=== PATIENT | female | born 1965 | race Caucasian/White ===

== ENCOUNTER → 2018-07-03 17:19 | Outpatient (CLI) | payer OTHER, SELFPAY ==
--- NOTE | 2018-07-03 17:21 | MM_ITS ---
MM Dig screening mamm BI w/CAD CAD Screening COMPARISON: Digital mammograms with CAD 06/20/2017 and 06/17/2016 INDICATION: There is a history of breast cancer patient maternal grandmother and paternal aunts TECHNIQUE: Standard CC and MLO images were obtained. R2 CAD reviewed. FINDINGS: Prominent diffuse heterogenic fibroglandular densities are seen in both breast and the findings are bilateral and symmetrical. There is no new or suspicious lesion in either breast and no suspicious microcalcifications. There is a tiny stable benign-appearing nodular density axillary tail right breast. IMPRESSION: Diffusely dense parenchymal pattern with no suspicious lesion seen BI-RADS Category: 2 Benign Finding(s) RECOMMENDED FOLLOW-UP: 1YR - 1 YEAR FOLLOW-UP (A letter has been sent to the patient regarding results of the study.)
== END ==
PROVIDERS: Family Provider Family Medicine; PCP Family Medicine; Visit Provider Obstetrics & Gynecology
DX: Z12.31 Encounter for screening mammogram for malignant neoplasm of breast (principal)
CPT/HCPCS: 77067

== ENCOUNTER → 2019-07-17 14:58 | Outpatient (CLI) | payer OTHER, SELFPAY ==
--- NOTE | 2019-07-17 15:00 | MM_ITS ---
PROCEDURE: MM DIG SCREENING MAMM BI W/CAD CLINICAL INDICATION: SCREENING There is a history of breast cancer patient's paternal grandmother and paternal aunts. COMPARISON: [facility] DIG MAMM-SCREEN EDUARDA from 06/17/2016 [facility] DIG MAMM-SCREEN EDUARDA W/CAD from 06/20/2017 [facility] MM Dig screening mamm BI w/CAD from 07/03/2018 TECHNIQUE: Standard CC and MLO images were obtained. R2 CAD reviewed. FINDINGS: Prominent diffuse heterogenic fibroglandular densities are seen throughout both breast and the findings are basically stable and unchanged from the previous exam. There is no new or suspicious lesion in either breast and no suspicious microcalcifications. Again noted is a stable tiny nodular density near the axillary tail right breast. There is no suspicious lesion and no suspicious microcalcifications. IMPRESSION: Diffusely dense parenchymal pattern with no suspicious lesions seen BI-RAD Category: 2 Benign Finding(s) FOLLOW-UP: 1YR 1 Year Follow-up (A letter has been sent to the patient regarding results of the study.) Dictated by: Dr. Johnathan Keys MD 07/18/2019 16:[address] Johnathan Keys MD in [place] 07/18/2019 16:20
--- NOTE | 2019-07-17 15:00 | XR_ITS ---
PROCEDURE: XR DEXA AXIAL SKELETON CLINICAL HISTORY: SCREENING COMPARISON: No exams were available for comparison FINDINGS: L1-L4 density is 1.340 grams/centimeters sq with a T-score of 1.3 which is normal. The left femoral neck density is 0.970 grams/centimeters sq with a T-score of -0.5 IMPRESSION: Normal bone density with low fracture risk. Suggest follow-up exam July 2021 Dictated by: Dakotah Mckenzie MD 07/17/2019 15:59 Electronically signed by Dakotah Mckenzie MD in [place] 07/17/2019 15:59
== END ==
PROVIDERS: PCP Family Medicine; Visit Provider Obstetrics & Gynecology
DX: Z78.0 Asymptomatic menopausal state (principal); Z12.31 Encounter for screening mammogram for malignant neoplasm of breast; Z13.820 Encounter for screening for osteoporosis
CPT/HCPCS: 77067; 77080

== ENCOUNTER → 2020-07-20 16:53 | Outpatient (CLI) | payer OTHER, SELFPAY ==
--- NOTE | 2020-07-20 16:54 | MM_ITS ---
PROCEDURE: MM DIG SCREENING MAMM BI W/CAD Digital Breast Tomosynthesis Included CLINICAL INDICATION: Routine Screening Mammogram There is a history of breast cancer in the patient's maternal grandmother and paternal aunts. The patient currently is on Premarin. COMPARISON: MG DMSB DIG MAMM-SCREEN EDUARDA W/CAD from 06/20/2017 MG [facility] MM Dig screening mamm BI w/CAD from 07/03/2018 MG MM DIG SCREENING MAMM BI W/CAD from 07/17/2019 TECHNIQUE: Standard CC and MLO images and 3D Tomosynthesis was obtained. R2 CAD reviewed. FINDINGS: Diffuse somewhat heterogenic fibroglandular densities are seen throughout both breasts. The findings are bilateral and symmetrical. There is a stable asymmetric density near the axillary tail right breast. There is no suspicious lesion and no suspicious microcalcifications. IMPRESSION: Stable diffusely dense parenchymal pattern with no suspicious lesions seen BI-RAD Category: 1 Negative FOLLOW-UP: 1YR 1 Year Follow-up (A letter has been sent to the patient regarding results of the study.) Dictated by: Dr. Johnathan Keys MD 07/22/2020 17:58 Dr. Johnathan Keys MD in [place] 07/22/2020 17:58
== END ==
PROVIDERS: PCP Family Medicine; Visit Provider Obstetrics & Gynecology
DX: Z12.31 Encounter for screening mammogram for malignant neoplasm of breast (principal)
CPT/HCPCS: 77063; 77067

== ENCOUNTER → 2020-11-10 14:50 | Outpatient (POV) | payer OTHER, SELFPAY | PROVIDERS: Visit Provider Dermatology | DX: Z00.00 Encounter for general adult medical examination without abnormal findings (principal) ==

== ENCOUNTER → 2021-05-05 16:24 | Outpatient (CLI) | payer OTHER, SELFPAY | PROVIDERS: Visit Provider Internal Medicine Gastroenterology | DX: Z01.812 Encounter for preprocedural laboratory examination (principal); Z20.822 Contact with and (suspected) exposure to COVID-19; Z12.11 Encounter for screening for malignant neoplasm of colon | CPT/HCPCS: U0003 ==

== ENCOUNTER 2021-05-07 07:26 | Day surgery (SDC) | payer OTHER, SELFPAY ==
[2021-04-29 14:46] VITALS: BMI 23.2
[2021-05-07] VITALS (7 sets, daily range): BP systolic 98–134; BP diastolic 53–89; PULSE 72–90; RESP 16–18; TEMP 36.3–37.2; O2SAT 95–100
--- NOTE | 2021-05-07 07:46 | HMH.ANESCL ---
[facility] [place] Anesthesia Checklist - Patient Identification Patient Identification: Arm Band - Structural Data Admitted From: Home Planned Operative Procedure/s: Colonoscopy Consent for Planned Operative Procedure(s) Verified: Yes - NPO Status Verified Time NPO: 00:00 - Airway Assessment C-Spine Mobility Assessed: Yes TMJ Mobility Assessed: Yes Dentition: Good Dentition - Neurological Assessment Level of Consciousness: Awake Hx Seizures: No Numbness or tingling in extremities: No - Anesthesia Plan Anesthesia Risk discussed: Yes Anesthesia Plan: Verified ASA Class: II Anesthesia Type: MAC [facility] [place] History I have reviewed the patient's past medical history: Yes Medical History: Reports:: Kidney Stones Denies:: Cancer, Diabetes Mellitus Type 1, Diabetes Mellitus Type 2, MRSA *Have you ever received a pneumonia vaccine?: No *Have you received a flu vaccine this season?: Yes Other Medical History: Reports: Hypothyroidism Anesthesia experience/problems:: None Other Surgeries: Yes: Cholecystectomy, , Hysterectomy-Total, Other Amputation: No Fractures: No - *Social History Last grade of school completed: Advanced degree Smoking Status: Never smoker Alcohol Intake: never Alcohol Intake Frequency:: holidays/special occasions only Substance Use Type: denies use *Occupational Status:: employed *Travel in the last 8 weeks: None Family Hx:: Cancer, Stroke, Coronary Artery Disease
--- NOTE | 2021-05-07 08:39 | P.PCN_ITS ---
[facility] Procedure Note Procedure Note:: Colonoscopy Procedure Report: Colonoscopy Endoscopist: Tony Ramos II, MD Referring physician: SULEMAN Guardado Date of Procedure: May 07, 2021 Equipment: Olympus 190 variable stiffness pediatric colonoscope Sedation: MAC sedation Indication: Mrs. Hilliard is a 55-year-old female who is here for an initial screening colonoscopy. She reports no abdominal pain, weight loss, change in her bowel habits or family history of colon cancer. She does get some occasional hemorrhoidal prolapse and rarely some hemorrhoidal bleeding. Procedure: Prior to the procedure, a history and physical exam was performed, and patient's medications and allergies were reviewed. The risks, benefits and alternatives of the sedation and procedure were discussed with the patient. All questions were answered and informed consent was obtained. The patient was brought to the procedure room. Patient identification and proposed procedure were verified by the physician and the nurse. The patient was placed in a left lateral decubitus position and the scope was passed under direct vision. Throughout the pr ocedure, the patient's blood pressure, pulse, and oxygen saturations were monitored continuously. The colonoscopy was accomplished without difficulty. The patient tolerated the procedure well. Findings: On digital rectal examination there was normal rectal tone. There were no external hemorrhoids. The colonoscope was introduced through the anal canal to the rectum and advanced to the cecum. The ileocecal valve and appendiceal orifice were identified. The scope was advanced a short distance into the ileum which appeared grossly normal. The scope was then withdrawn into the colon. The cecum, ascending, transverse, descending, sigmoid and rectum were grossly normal. There were no mucosal abnormalities identified. Upon retroflexion within the rectum there were grade 1 internal hemorrhoids.The preparation was excellent throughout with Linwood Preparation Score of 9. The cecal time was 10 minutes. Impression: 1. Normal colonoscopy with intubation of the terminal ileum 2. Grade 1 internal hemorrhoids Plan: The patient will not require screening/surveillance colonoscopy again for 10 years by ACS guidelines. I would encourage bulking fiber supplementation on a long-term daily maintenance basis.
== END 2021-05-07 09:45 | disposition home or self-care (01) ==
LOC: OUTP 07:28
PROVIDERS: PCP Family Medicine; Visit Provider Internal Medicine Gastroenterology
PROC: 0DJD8ZZ Inspection of Lower Intestinal Tract, Via Natural or Artificial Opening Endoscopic (ICD-10-PCS; CPT 45378; principal; 2021-05-07 08:30)
DX: Z12.11 Encounter for screening for malignant neoplasm of colon (principal); K64.0 First degree hemorrhoids; Z87.442 Personal history of urinary calculi; E03.9 Hypothyroidism, unspecified; Z80.9 Family history of malignant neoplasm, unspecified; Z82.3 Family history of stroke; Z82.49 Family history of ischemic heart disease and other diseases of the circulatory system; Z79.890 Hormone replacement therapy; Z79.899 Other long term (current) drug therapy
CPT/HCPCS: 45378

== ENCOUNTER → 2021-07-27 16:47 | Outpatient (CLI) | payer OTHER, SELFPAY ==
--- NOTE | 2021-07-27 16:47 | MM_ITS ---
PROCEDURE INFORMATION: Exam: MG Bilateral Screening 3D Mammography Exam date and time: 07/27/2021 4:47 PM Age: 55 years old Clinical indication: Encounter for screening mammogram for malignant neoplasm of breast TECHNIQUE: Imaging protocol: Bilateral screening tomosynthesis and 2D mammography including computer-aided detection (CAD) when performed. COMPARISON: 1. MG MM DIG SCREENING MAMM BI W/CAD 07/20/2020 4:58 PM 2. MG MM DIG SCREENING MAMM BI W/CAD 07/17/2019 3:49 PM FINDINGS: MAMMOGRAPHY: Breast composition: The breast tissue is heterogeneously dense, which may obscure small masses. Mass: None. Architectural distortion: None. Calcifications: No suspicious calcifications. Asymmetric density: None. Skin thickening: None. Axillary adenopathy: None. IMPRESSION: No mammographic evidence of malignancy. Annual screening is recommended unless otherwise clinically indicated. ASSESSMENT: BI-RADS Category 1: Negative
== END ==
PROVIDERS: PCP Family Medicine; Visit Provider Obstetrics & Gynecology
DX: Z12.31 Encounter for screening mammogram for malignant neoplasm of breast (principal)
CPT/HCPCS: 77063; 77067

== ENCOUNTER → 2022-04-12 11:14 | Outpatient (POV) | payer OTHER, SELFPAY | PROVIDERS: Visit Provider Dermatology | DX: Z00.00 Encounter for general adult medical examination without abnormal findings (principal) ==

== ENCOUNTER → 2022-05-12 08:24 | Outpatient (CLI) | payer OTHER, SELFPAY ==
--- NOTE | 2022-05-12 08:29 | CT_ITS ---
FINAL REPORT CLINICAL HISTORY: LLQ ABDOMINAL PAIN. ABDOMINAL SWELLING FINDINGS: CT OF THE ABDOMEN AND PELVIS WITH CONTRAST Axial CT images of the abdomen and pelvis were obtained after the administration of oral and iv contrast. Coronal reformatted images were also obtained and reviewed.This study was performed with techniques to keep radiation doses as low as reasonably achievable (ALARA). Individualized dose reduction techniques using automated exposure control or adjustment of mA and/or kV according to the patient's size were employed. Abdomen: The lung bases are clear. The heart is normal in size. The liver has an unremarkable appearance, without evidence of mass or biliary ductal dilatation. There are postoperative changes from cholecystectomy. There is mild biliary ductal dilatation which is likely a post cholecystectomy change. The spleen is unremarkable. No adrenal mass is present. The pancreas has an unremarkable appearance. The kidneys are normal, without evidence of mass or hydronephrosis. The aorta is normal in caliber. There is no free fluid or adenopathy. No mass or abnormal fluid collection is seen. There is a small umbilical hernia containing fat. Pelvis: The appendix is not visualized. The urinary bladder is unremarkable. No inflammatory process is seen. There is no evidence of mass or adenopathy. There is no evidence of bowel obstruction. There are postoperative changes from hysterectomy. IMPRESSION: No evidence of acute intra-abdominal process. Reviewed, Interpreted and Dictated by Michael Holman III, MD Transcribed by Tiffanie Valdez Authenticated and [facility]
== END ==
PROVIDERS: PCP Nurse Practitioner Family; Visit Provider Nurse Practitioner Family
DX: R10.32 Left lower quadrant pain (principal); R19.04 Left lower quadrant abdominal swelling, mass and lump
CPT/HCPCS: 74177; Q9967

== ENCOUNTER → 2022-06-17 08:27 | Outpatient (CLI) | payer OTHER, SELFPAY ==
[2022-06-17 08:32] LABS: Microscopic, Urine URINE MICROSCOPIC (MICROSCOPIC)
[2022-06-17 08:54] LABS: Basophils # 0.1 K/mm3 (0-0.2); Eosinophils # 0.2 K/mm3 (0.0-0.4); Eosinophils % 2.6 % (0.1-12.0); Hematocrit 42.1 % (37.0-47.0); Hemoglobin 13.6 g/dL (12.2-16.2); Lymphocytes # 1.6 K/mm3 (0.7-4.5); Lymphocytes % 25.2 % (10-50); Mean Corpuscular HGB Conc 32.2 g/dL (31.8-35.4); Mean Corpuscular Hemoglobin 29.3 pg (27.0-31.2); Mean Corpuscular Volume 90.8 fl (81-99); Mean Platelet Volume 8.7 fl (7.4-10.4); Monocytes # 0.5 K/mm3 (0.1-1.0); Monocytes % 6.9 % (1.7-9.3); Neutrophils # 4.1 K/mm3 (1.8-7.8); Neutrophils % 63.4 % (37.0-80.0); Platelet Count 328 K/mm3 (142-424); Red Blood Count 4.64 M/mm3 (4.20-5.40); Red Cell Distribution Width 13.2 % (11.5-17.5); White Blood Count 6.5 K/mm3 (4.8-10.8)
[2022-06-17 08:57] LABS: Appearance,Urine CLEAR (Clear); Bilirubin,Urine Negative (Negative); Blood, Urine 1+ (Negative); Color,Urine DK YELLOW (Yellow); Glucose,Urine (UA) Negative (Negative); Ketones,Urine Negative (Negative); Leukocyte Esterase,Urine Negative (Negative); Nitrate,Urine Negative (Negative); Protein,Urine Negative (Negative); Specific Gravity, Urine >= 1.030 (1.005-1.030); Urobilinogen,Urine 0.2 EU/dl (0.2)
[2022-06-17 09:12] LABS: RBC,Urine Occasional #/hpf (0-3); Squamous Epithelial Cell,Urine Occasional #/hpf (0-5); WBC,Urine Occasional #/hpf (0-3)
[2022-06-17 09:17] LABS: Chloride 101 mmol/L (98-107); Sodium 137 mmol/L (136-145)
[2022-06-17 09:20] LABS: Blood Urea Nitrogen 11 mg/dl (7-17); Calcium 8.7 mg/dl (8.4-10.2); Carbon Dioxide 28 mmol/L (22.0-30.0); Estimated Glomerular Filt Rate 87 ml/min (>60); GFR (African American) 105 ML/MIN (>60); Glucose 86 mg/dl (74-100)
== END ==
PROVIDERS: PCP Nurse Practitioner Family; Visit Provider Surgery
DX: K42.9 Umbilical hernia without obstruction or gangrene (principal)
CPT/HCPCS: 36415; 80048; 81001; 85025

== ENCOUNTER 2022-06-30 08:30 | Day surgery (SDC) | payer OTHER, SELFPAY ==
[2022-06-30] VITALS (22 sets, daily range): BP systolic 107–138; BP diastolic 62–96; PULSE 69–95; RESP 12–18; TEMP 36.1–43; O2SAT 93–97; BMI 25.7
--- NOTE | 2022-06-30 09:29 | EXP.ANES.CKL ---
PFSH PFSH Medical History (Updated 06/30/22 @ 09:10 by Lauren Mejia RN) Allergies Anxiety Cholecystectomy planned Endometriosis Gallbladder disease Hypothyroid Sinus headache Urinary tract infection Surgical History (Updated 06/30/22 @ 09:10 by Lauren Mejia, RN) H/O total hysterectomy History of appendectomy Hx of section Family History Other Cancer Heart disease Social History (Updated 06/30/22 @ 08:55 by Lauren Mejia RN) Smoking Status: Never smoker alcohol intake: never substance use type: denies use current occupational status: employed Travel in the last 8 weeks: None caffeine: Yes [facility] Anesthesia Checklist Patient Identification Patient Identification: Arm Band Structural Data Admitted From: Home Planned Operative Procedure/s: Laparoscopic Umbilical Hernia Repair Consent for Planned Operative Procedure(s) Verified: Yes Verified Documents: Surgical Consent and History and Physical NPO Status Verified Time NPO: 00:00 Additional verifications Anesthesia Reactions: No Hx Blood Transfusions: No Blood Transfusion Reaction: No Airway Assessment C-Spine Mobility Assessed: Yes TMJ Mobility Assessed: Yes Dentition: Good Dentition Neurological Assessment Level of Consciousness: Awake and Alert Anesthesia Plan Anesthesia Risk discussed: Yes Anesthesia Plan: Verified ASA Class: II Anesthesia Type: General
--- NOTE | 2022-06-30 10:46 | P.OP_ITS ---
Date of procedure: 06/30/22 Pre-op Diagnosis:: Umbilical hernia with incarcerated preperitoneal fat Post-op Diagnosis:: Same Procedure performed:: Open primary umbilical hernia repair (no mesh) Surgeon:: Trevor Coto MD CLIENT RESOLUTION SPECIALIST:: Kwesi Anton Anesthesia: GETA Estimated blood loss (mL): 10 Operative findings:: Small nodule of incarcerated preperitoneal fat Significant soft tissue thickening/scarring secondary to prior surgical intervention Operative note:: After informed consent was obtained the patient was taken to the operating room and placed in the supine position.? General anesthesia was achieved and her abdomen was prepped and draped in a sterile fashion.? After infiltration local anesthetic a curvilinear infraumbilical incision was made (site of prior incision).? The deep subcutaneous tissue was dissected with a combination of sharp dissection, blunt dissection, and electrocautery.? A 7 mm defect with a small nodule incarcerated preperitoneal fat was noted.? The nodule of preperitoneal fat was carefully excised.? The defect was elevated to minimize risk for injury to the underlying tissue.? 0 Ethibond was used to complete the repair in an interrupted fashion.? 2-0 Vicryl (undyed) was then used to reapproximate the umbilical stump.? Skin was closed with 4-0 Monocryl in an interrupted/mattress fashion to facilitate hemostasis.? Dressings were applied and the patient was transferred to recovery in stable condition. Condition: stable Disposition: PACU Specimens:: None Complications:: No immediate
--- NOTE | 2022-06-30 10:56 | EXP.ANES.I ---
[facility] Anesthesia Record Part I Anesthesia Record I Intake, IV Amount: 1,500 Estimated blood loss (mL): 0 Urine output (mL): 0 Blood Pressure: 129/96 SaO2: 94 Pulse Rate: 95 Respiratory Rate: 12 Temperature: 97 F Patient is:: Awake and Stable Stable to PACU at:: 10:55
--- NOTE | 2022-06-30 12:15 | SUR.PHASEI ---
1213 called and gave detailed report to Sara Blount RN 1214 transported to post op via stretcher. vital signs stable. rates pain at a level 5. left in stable condition with Sara Blount RN at bedside.
--- NOTE | 2022-07-04 08:45 | P.PNANES_ITS ---
[facility] Anesthesia Record Part II Anesthesia Record Part II Discharge Time: 12:14 Destination: Surgical Day Care (OP Surgery) PACU nurse assessment reviewed?: Yes Patient Condition:: Good Anesthesia Complications:: None Swallowing reflex intact?: Yes Cyanosis?: No Blood Pressure: 117/70 Pulse Rate: 89 Temperature: 98.3 F Mental Status: Alert & Oriented Pain level:: 5 Nausea and/or vomitting:: None Intake, IV Amount: 0
[2022-07-04 08:46] VITALS: BP 117/70; PULSE 89; TEMP 36.8
== END 2022-06-30 12:47 | disposition home or self-care (01) ==
PROVIDERS: PCP Nurse Practitioner Family; Visit Provider Surgery
PROC: (CPT 49587; principal; 2022-06-30 10:30)
DX: K42.0 Umbilical hernia with obstruction, without gangrene (principal); Z79.899 Other long term (current) drug therapy
CPT/HCPCS: 49587; 96374; J2405; J2710

== ENCOUNTER 2022-07-08 20:21 | Emergency (ER) | payer OTHER, SELFPAY ==
--- NOTE | 2022-07-08 20:17 | ECG_ITS ---
APPROVED REPORT Exam: Resting ECG HR:126 bpm ECG Measurements Heart Rate 126 AXES IN 155 P 53 QRSd 78 QRS 8 QT 291 T 18 QTc 365 Conclusion SINUS TACHYCARDIA MODERATE ST DEPRESSION [0.05+ mV ST DEPRESSION] ABNORMAL ECG UNCONFIRMED REPORT Electronically signed by : Caleb Mckeon MD 07/10/2022 21:20:18
[2022-07-08 20:22] VITALS: BP 190/79; PULSE 109; RESP 16; TEMP 36.7; O2SAT 99; BMI 25.5
--- NOTE | 2022-07-08 20:25 | XR_ITS ---
PROCEDURE INFORMATION: Exam: XR Chest Exam date and time: 07/08/2022 8:30 PM Age: 56 years old Clinical indication: Sternal or substernal pain; Additional info: Cp TECHNIQUE: Imaging protocol: Radiologic exam of the chest. Views: 2 views. COMPARISON: CT ABDOMEN PELVIS W CON 05/12/2022 8:37 AM FINDINGS: Lungs: No acute airspace consolidation. No appreciable pulmonary edema. Pleural spaces: No pleural effusion. No pneumothorax. Heart/Mediastinum: Cardiomediastinal silouhette is within normal limits. Bones/joints: No evidence of acute osseous abnormality. IMPRESSION: No acute findings.
[2022-07-08 20:32] LABS: Basophils # 0.1 K/mm3 (0-0.2); Basophils % 1.1 % (0.1-2.0); Eosinophils # 0.3 K/mm3 (0.0-0.4); Eosinophils % 3.6 % (0.1-12.0); Hematocrit 40.1 % (37.0-47.0); Hemoglobin 13.3 g/dL (12.2-16.2); Lymphocytes # 2.4 K/mm3 (0.7-4.5); Lymphocytes % 27.6 % (10-50); Mean Corpuscular HGB Conc 33.3 g/dL (31.8-35.4); Mean Corpuscular Hemoglobin 29.4 pg (27.0-31.2); Mean Corpuscular Volume 88.4 fl (81-99); Mean Platelet Volume 8.4 fl (7.4-10.4); Monocytes # 0.7 K/mm3 (0.1-1.0); Monocytes % 7.4 % (1.7-9.3); Neutrophils # 5.3 K/mm3 (1.8-7.8); Neutrophils % 60.4 % (37.0-80.0); Platelet Count 372 K/mm3 (142-424); Red Blood Count 4.54 M/mm3 (4.20-5.40); Red Cell Distribution Width 13.2 % (11.5-17.5); White Blood Count 8.8 K/mm3 (4.8-10.8)
[2022-07-08 20:39] LABS: Anion Gap 15.8 mEq/L (5-15); Blood Urea Nitrogen 12 mg/dl (7-17); Calcium 8.6 mg/dl (8.4-10.2); Carbon Dioxide 26 mmol/L (22.0-30.0); Chloride 100 mmol/L (98-107); Creatinine Clearance Estimated 85 mL/min (50-200); Estimated Glomerular Filt Rate 87 ml/min (>60); GFR (African American) 105 ML/MIN (>60); Glucose 110 mg/dl (74-100); Potassium 3.8 mmoL/L (3.5-5.1); Sodium 138 mmol/L (136-145)
[2022-07-08 20:56] LABS: Troponin I < 0.01 ng/ml (0.00-0.034)
--- NOTE | 2022-07-08 21:28 | HMH.EDCP ---
Discharge Plan Disposition Patient Disposition: Home, Self-Care Prescriptions Prescriptions: No Action sertraline 25 mg tablet 25 mg PO DAILY levothyroxine [Synthroid] 150 mcg tablet 150 mcg PO DAILY Premarin 1.25 mg tablet 1.25 mg PO DAILY Referrals Follow up/Referrals: Summer Lutz APRN [Primary Care Provider] - See instructions Clinical Impressions Clinical Impression: Chest pain, Atypical chest pain Instructions Patient Instructions: DI for Atypical Chest Pain Discharge ED Provider: Mahin Gaming Chest Pain HPI General Chief Complaint: Chest Pain Stated Complaint: chest pain Time Seen by Provider: 07/08/22 20:40 Mode of Arrival: Ambulatory Source of Information: Patient, Spouse and Medical Record Limitations: No Limitations Description of Symptoms (Recalled from ER Triage Doc. by RN): pt c/o stabbing chest pain that starting 15 mins prior to arrival History of Present Illness HPI narrative: sudden ant chest pain as she was laughing - hx of surg last week MD complaint: chest pain indicative of cardiac Onset (ago): hour(s) Duration: constant Activity at onset: during rest Pain location: substernal Severity: moderate Quality: sharp Context: recent surgery Risk Factors for CAD: Hypertension and Family Hx of CAD Treatments prior to or on arrival for Cardiac Chest Pain: none KALEY Score for Non-Stemi Age of Patient: 50-59 years old Heart Rate: 70-89 bpm Systolic Blood Pressure: 120-139 mmhg Serum Creatinine: 0.40-0.79 mg/dl CHF Killip Class: I-No CHF Other Risk Factors: None Non-Stemi Risk Score: 88 Related Data On Oral Contraceptives: No Home Medications Medication Instructions Recorded Confirmed sertraline 25 mg tablet 25 mg PO DAILY . 05/27/22 07/06/22 conjugated estrogens 1.25 mg 1.25 mg PO DAILY Supplement 06/30/22 07/06/22 tablet (Premarin) levothyroxine 150 mcg tablet 150 mcg PO DAILY THYROID 06/30/22 07/06/22 (Synthroid) Allergies Allergy/AdvReac Type Severity Reaction Status Date / Time No Known Allergies Allergy Verified 07/06/22 13:16 [facility] Medical History (Updated 07/08/22 @ 23:46 by Mahin Gaming MD) Allergies Anxiety Cholecystectomy planned Endometriosis Gallbladder disease Hypothyroid Sinus headache Urinary tract infection Surgical History (Updated 07/06/22 @ 13:17 by ELSY Curran) H/O total hysterectomy History of appendectomy History of umbilical hernia repair Hx of section Family History Other Cancer Heart disease Social History Smoking Status: Never smoker alcohol intake: never substance use type: denies use current occupational status: employed Travel in the last 8 weeks: None caffeine: Yes ROS Obtained: Yes All systems reviewed & no additional complaints except as documented Constitutional Constitutional: Denies fever(s) Cardiovascular Cardiovascular: Reports as per HPI and Reports chest pain Physical Exam General General appearance: alert Head Head exam: normocephalic Eye Eye exam: Present PERRL and EOMI ENT ENT exam: Present mucous membranes moist Neck Neck exam: Absent trachea midline Respiratory Respiratory exam: Present normal lung sounds bilaterally; Absent respiratory distress Cardiovascular Cardiovascular exam: Present regular rate and normal heart sounds; Absent systolic murmur, rubs, gallop or clicks Abdominal Exam Abdominal exam: Present soft Extremities Exam Extremities exam: Present full ROM; Absent calf tenderness Neurological Exam Neurological exam: Present alert, oriented X3 and CN II-XII intact Psychiatric Psychiatric exam: Present normal affect Skin Skin exam: Absent rash Medical Decision Making Medical Records Medical records reviewed: Yes I reviewed the patient's medical records. Jean Paul Inquiry Pt receiving
--- NOTE | 2022-07-08 21:32 | CT_ITS ---
PROCEDURE INFORMATION: Exam: CTA Chest With Contrast Exam date and time: 07/08/2022 9:40 PM Age: 56 years old Clinical indication: Sternal or substernal pain; Additional info: Chest pain /sob/ RO pe TECHNIQUE: Imaging protocol: Computed tomographic angiography of the chest with contrast. 3D rendering (Not supervised by radiologist): MIP and/or 3D reconstructed images were created by the technologist. Radiation optimization: All CT scans at this facility use at least one of these dose optimization techniques: automated exposure control; mA and/or kV adjustment per patient size (includes targeted exams where dose is matched to clinical indication); or iterative reconstruction. Contrast material: ISOVUE 370; Contrast volume: 70 ml; Contrast route: INTRAVENOUS (IV); COMPARISON: CR XR CHEST 2V 07/08/2022 8:30 PM FINDINGS: Pulmonary arteries: No pulmonary emboli. Aorta: No aortic dissection or aneurysm. Lungs: No acute airspace consolidation. No appreciable pulmonary edema. Calcified pulmonary granuloma in the right lower lobe compatible with chronic sequelae of prior granulomatous disease. Pleural spaces: No pneumothorax. No pleural effusion. Heart: No cardiomegaly. No significant pericardial effusion. Lymph nodes: No enlarged lymph nodes by CT criteria. Intraperitoneal space: No emergent findings or suspicious mass lesions in the visualized upper abdomen. Bones/joints: No acute osseous abnormality. Soft tissues: Unremarkable. IMPRESSION: No evidence of pulmonary embolism or other acute process in the chest.
[2022-07-08 23:33] VITALS: BP 133/78; PULSE 88; RESP 18; TEMP 36.9; O2SAT 99
== END 2022-07-08 23:50 | disposition home or self-care (01) ==
PROVIDERS: Emergency Provider Emergency Medicine; PCP Nurse Practitioner Family
DX: R07.89 Other chest pain (principal); Z79.899 Other long term (current) drug therapy; E07.9 Disorder of thyroid, unspecified; F41.9 Anxiety disorder, unspecified; E03.9 Hypothyroidism, unspecified; Z87.19 Personal history of other diseases of the digestive system
CPT/HCPCS: 71046; 71275; 80048; 84484; 85025; 93005; 96374; 96375; 99285; Q9967

== ENCOUNTER → 2022-07-19 15:12 | Outpatient (POV) | payer OTHER, SELFPAY | PROVIDERS: Visit Provider Dermatology | DX: Z00.00 Encounter for general adult medical examination without abnormal findings (principal) ==

== ENCOUNTER → 2022-08-01 08:24 | Outpatient (CLI) | payer OTHER, SELFPAY ==
--- NOTE | 2022-08-01 08:29 | FL_ITS ---
FINAL REPORT CLINICAL HISTORY: dysphagia fluoro time-0.53 FINDINGS: ESOPHAGRAM HISTORY: Dysphagia. TECHNIQUE: The patient ingested thick and thin barium contrast. Spot and overhead films were performed. Total of 37 images were saved. FINDINGS: Esophagus is unremarkable. There is no hiatal hernia identified. There is no gastroesophageal reflux demonstrated. No mucosal defects are seen. There is mild esophageal dysmotility. No changes of esophagitis are evident. 13 mm barium tablet passes easily through the esophagus and into the stomach. Fluoroscopy time: 53 seconds. IMPRESSION: Mild esophageal dysmotility. Otherwise, unremarkable esophagram. Reviewed, Interpreted and Dictated by Michael Holman III, MD Transcribed by Tonja Jacob PA-C Authenticated and . [facility]
== END ==
PROVIDERS: PCP Nurse Practitioner Family; Visit Provider Surgery
DX: R13.10 Dysphagia, unspecified (principal)
CPT/HCPCS: 74220

== ENCOUNTER → 2022-08-16 16:42 | Outpatient (CLI) | payer OTHER, SELFPAY ==
--- NOTE | 2022-08-16 16:43 | MM_ITS ---
PROCEDURE INFORMATION: Exam: MG Bilateral Screening 3D Mammography Exam date and time: 08/16/2022 4:43 PM Age: 56 years old Clinical indication: Screening examination TECHNIQUE: Imaging protocol: Bilateral Screening tomosynthesis and 2D mammography including computer-aided detection (CAD) when performed. COMPARISON: 1. MG MM DIG SCREENING MAMM BI W/CAD 07/27/2021 4:49 PM 2. MG MM DIG SCREENING MAMM BI W/CAD 07/20/2020 4:58 PM FINDINGS: MAMMOGRAPHY: Breast composition: The breasts are heterogeneously dense, which may obscure small masses. Mass: None. Architectural distortion: None. Calcifications: No suspicious calcifications. Asymmetric density: None. Skin thickening: None. Axillary adenopathy: None. IMPRESSION: No mammographic evidence of malignancy. Annual screening is recommended unless otherwise clinically indicated. ASSESSMENT: BI-RADS Category 1: Negative
== END ==
PROVIDERS: PCP Nurse Practitioner Family; Visit Provider Obstetrics & Gynecology
DX: Z12.31 Encounter for screening mammogram for malignant neoplasm of breast (principal)
CPT/HCPCS: 77063; 77067

== ENCOUNTER → 2022-08-30 16:00 | Outpatient (POV) | payer OTHER, SELFPAY | PROVIDERS: Visit Provider Dermatology | DX: Z00.00 Encounter for general adult medical examination without abnormal findings (principal) ==

== ENCOUNTER → 2023-08-22 16:42 | Outpatient (CLI) | payer OTHER, SELFPAY ==
--- NOTE | 2023-08-22 16:42 | MM_ITS ---
PROCEDURE INFORMATION: Exam: MG Bilateral Screening 3D Mammography Exam date and time: 08/22/2023 4:31 PM Age: 57 years old Clinical indication: Screening examination TECHNIQUE: Imaging protocol: Bilateral Screening tomosynthesis and 2D mammography including computer-aided detection (CAD) when performed. COMPARISON: 1. MG MM DIG SCREENING MAMM BI W/CAD 08/16/2022 4:43 PM 2. MG MM DIG SCREENING MAMM BI W/CAD 07/27/2021 4:49 PM FINDINGS: MAMMOGRAPHY: Breast composition: The breasts are heterogeneously dense, which may obscure small masses. Mass: None. Architectural distortion: None. Calcifications: No suspicious calcifications. Asymmetric density: None. Skin thickening: None. Axillary adenopathy: None. IMPRESSION: No mammographic evidence of malignancy. Annual screening is recommended unless otherwise clinically indicated. ASSESSMENT: BI-RADS Category 1: Negative
== END ==
PROVIDERS: PCP Nurse Practitioner Family; Visit Provider Obstetrics & Gynecology
DX: Z12.31 Encounter for screening mammogram for malignant neoplasm of breast (principal)
CPT/HCPCS: 77063; 77067

== ENCOUNTER 2024-08-26 10:40 | Outpatient (CLI) | payer BC, SELFPAY ==
--- NOTE | 2024-08-26 10:42 | MM_ITS ---
PROCEDURE INFORMATION: Exam: MG Bilateral Screening 3D Mammography Exam date and time: 08/26/2024 10:33 AM Age: 58 years old Clinical indication: Screening exam. TECHNIQUE: Imaging protocol: Bilateral Screening tomosynthesis and 2D mammography including computer-aided detection (CAD) when performed. COMPARISON: 1. MG MM DIG SCREENING MAMM BI W/CAD 08/22/2023 4:31 PM 2. MG MM DIG SCREENING MAMM BI W/CAD 08/16/2022 4:43 PM FINDINGS: MAMMOGRAPHY: Breast composition: The breasts are heterogeneously dense, which may obscure small masses. Mass: No suspicious masses. Architectural distortion: None. Calcifications: No suspicious calcifications. Asymmetric density: None. Skin thickening: None. Axillary adenopathy: None. IMPRESSION: No mammographic evidence of malignancy. Annual screening is recommended unless otherwise clinically indicated. ASSESSMENT: BI-RADS Category 1: Negative.
== END 2024-08-26 23:59 | disposition home or self-care (01) ==
LOC: RAD 10:40
PROVIDERS: PCP Nurse Practitioner; Visit Provider Obstetrics & Gynecology
DX: Z12.31 Encounter for screening mammogram for malignant neoplasm of breast (principal)
CPT/HCPCS: 77063; 77067

== ENCOUNTER 2025-08-29 07:51 | Outpatient (CLI) | payer BC, SELFPAY ==
--- OUTSIDE RECORDS SUMMARY | 2025-08-29 07:53 | XMS_ITS ---
Author Organization Unknown ENCOUNTERS Encounter Performer Location Date Diagnosis Diagnosis Status Emergency [place] [id number] [facility] [address] [place] [address] [id number] MARLENE *Note: Encounters from your own facility or health system may be excluded. Allergies, Adverse Reactions, Alerts Allergen Type Severity Identification Date Medications Name Date Quantity Days Supplied GPI Number
--- OUTSIDE RECORDS SUMMARY | 2025-08-29 07:53 | XMS_ITS | Clinical Summary ---
Author Organization [facility] Address [address] [place] [address] Care Team Providers Care Profiling Machine Set Up Operator Name Role Phone Shorty Guallpa MD Primary Care Provider [phone] Allergies No known active allergies Medications estrogens, conjugated, (PREMARIN) 1.25 MG tablet Take 1 tablet by mouth Daily. Active levothyroxine (SYNTHROID, LEVOTHROID) 75 MCG tablet Take 1 tablet by mouth Daily. Active NON FORMULARY Dr. Saba provided patient with vitamins for 2 weeks prior to surgery and 2 weeks post surgery. Active Active Problems Problem Noted Date Diagnosed Date S/P cosmetic plastic surgery 08/29/2023 Social History Tobacco Use Types Packs/Day Years Used Date Smoking Tobacco: Never Smokeless Tobacco: Never Tobacco Cessation:Counseling Given: Not Answered Alcohol Use Standard Drinks/Week Comments Never 0 (1 standard drink = 0.6 oz pur e alcohol) AUDIT-C Answer Date Recorded Q1: How often do you have a drink containing alcohol? Never 08/29/2023 Q2: How many drinks containi ng alcohol do you have on a typical day when you are drinking? Patient does not drink Q3: How often do you have si x or more drinks on one occasion? Never 08/29/2023 Abuse Screen Answer Date Recorded Feels Unsafe at Home or Work/School no 08/29/2023 Feels Threatened by Someone no 08/11 Does Anyone Try to Keep You From Having Contact with Others or Doing Things Outside Your Home? no 08/29/2023 Physical Signs of Abuse Present no 08/29/2023 Housing Stability Answer Date Recorded Current Living Arrangements home 08/11 Potentially Unsafe Housing Conditions Not on choco e 08/29/2023 Family and Community Support Answer Edward e Recorded Help with Day-to-Day Activities Not on file 06/23/2023 Lonely or Isolated Not on file 06/23/2023 Employment Answer Date Recorded Do you want help finding or keeping work or a richard b? Not on file 06/23/2023 Disabilities Answer Date Recorded Difficulty Concentrating, Remembering or Making Decisions no 08/29/2023 Difficulty Managing Errands Independently no 08/29/2023 Education Answer Date Recorded Help with school or training? Not on file Preferred Language Somali 08/22/2023 Comments Unknown Sex and Gender Information Value Date Recorded Sex Assigned at Not on file Legal Sex Female 10:43 AM EDT Gender Identity Not on file Sexual Orientation Not on file Last Filed Vital Signs Vital Sign Reading Time Taken Comments Blood Pressure 124/78 08/30/2023 7:00 AM EST Pulse 82 08/30/2023 7:00 AM EST Temperature 36.8 C (98.2 F) 08/30/2023 7:00 AM EST Respiratory Rate 18 08/30/2023 7:00 AM EST Oxygen Saturation 93% 08/30/2023 7:00 AM EST Inhaled Oxygen Concentration - - Weight 61.7 kg (136 lb) 08/29/2023 2:15 PM EST Height 152.4 cm (5') 08/29/2023 2:15 PM EST Body Mass Index 26.56 08/29/2023 2:15 PM EST Plan of Treatment Health Maintenance Due Date Last Done Comments Annual Gynecologic Pelvic and Breast Exam 1966 MAMMOGRAM 2006 COLOGUARD 11/19/2011 COLON CANCER SCREENING 5 YEA R SIGMOIDOSCOPY 11/19/2011 COLONOSCOPY 11/19/2011 COLORECTAL CANCER SCREENING 11/19/2011 CT COLONOGRAPHY 11/19/2011 FECAL OCCULT BLOOD TEST 11/19/2011 FIT Testing (1 year) 11/19/2011 Pneumococcal Vaccine 50+ (1 of 1 - PCV) 2016 ZOSTER VACCINE (2 of 3) 09/10/2017 07/16/2017 ANNUAL PHYSICAL 08/22/2023 HEPATITIS C SCREENING 08/22/2023 INFLUENZA VACCINE 04/11/2025 07/08/2017, 05/22/2016 TDAP/TD VACCINES (2 - Td or Tdap) 07/16/2027 017 Medical Devices Implanted Type Area Ore Sampler Device Identifier Shelf Expiration Date Model / Serial / Lot Dev Contrl Tiss Stratafix Spiral Mncryl Ud 3/0 Pls 60cm - [id number] Implanted:Qty : 1 on 08/29/2023 by Mahin Saba MD at [facility] Implant Left: Abdomen [employer] 06/10/2025 [id number] / / [id number] Dev Contrl Tiss Stratafix Spiral Mncryl Ud 3/0 Pls 60cm - [id number] Implanted:Qty : 1 on 08/29/2023 by Mahin Saba MD at [facility] Implant Right: Abdomen [employer] 06/10/2025 [id number] / / [id number] Insurance [employer] Advance Directives * CPR (Attempt to Resuscitate) (Latest Code Status on File) Date Activated Date Inactivated Comments 08/29/2023 2:21 PM 08/30/2023 11:52 AM Question Answer Comments Code Status (Patient has no pulse and is not breathing): CPR (Attempt to Resuscitate) Medical Interventions (Patie nt has pulse or is breathing): Full Support Level Of Support Discussed With: Patient Care Teams Profiling Machine Set Up Operator Relationship Specialty Start Date End Date Shorty Guallpa MD [address] [place] [address] PCP - General Family Medicine 08/22/23
--- NOTE | 2025-08-29 08:00 | MM_ITS ---
PROCEDURE INFORMATION: Exam: MG Bilateral Screening 3D Mammography Exam date and time: 08/29/2025 8:04 AM Age: 59 years old Clinical indication: Screening examination; . Family history of breast carcinoma. TECHNIQUE: Imaging protocol: Bilateral Screening tomosynthesis and 2D mammography including computer-aided detection (CAD) when performed. COMPARISON: 1. MG MM DIG SCREENING MAMM BI W/CAD 08/26/2024 10:33 AM 2. MG MM DIG SCREENING MAMM BI W/CAD 08/22/2023 4:31 PM FINDINGS: MAMMOGRAPHY: Breast composition: The breasts are heterogeneously dense, which may obscure small masses. Mass: No suspicious masses. Architectural distortion: No suspicious distortion. Calcifications: No suspicious calcifications. Asymmetric density: None. Skin thickening: None. Axillary adenopathy: None. IMPRESSION: 1. No mammographic evidence of malignancy. Annual screening is recommended unless otherwise clinically indicated. 2. Given the reported risk factors for this patient, a breast cancer risk assessment may prove useful for further evaluation. ASSESSMENT: BI-RADS Category 1: Negative.
== END 2025-08-29 23:59 | disposition home or self-care (01) ==
LOC: RAD 07:52
PROVIDERS: PCP Nurse Practitioner; Visit Provider Obstetrics & Gynecology
DX: Z12.31 Encounter for screening mammogram for malignant neoplasm of breast (principal); R92.333 Mammographic heterogeneous density, bilateral breasts; Z80.3 Family history of malignant neoplasm of breast
CPT/HCPCS: 77063; 77067